=== PATIENT | male | born 1960 | race Caucasian/White ===

== ENCOUNTER 2017-03-09 11:36 | Emergency (ER) | payer MEDICARE, MEDICAID ==
[~2017-03-09] VITALS: Ht 162.6 cm; Wt 79.5 kg
[2017-03-09 11:42] VITALS: BP 138/66; PULSE 70; RESP 16; TEMP 97.4; O2SAT 98
[2017-03-09] MEDS ORDERED: TRAM1CAP21 PO ×2 (11:54→13:14)
[2017-03-09] MEDS ORDERED: PANT40TA3 PO ×2 (11:54→13:14)
[2017-03-09] MEDS ORDERED: AMLO5TAB2 PO ×2 (11:54→13:14)
[2017-03-09] MEDS ORDERED: NOVOLOGP2 SQ ×2 (11:54→13:14)
[2017-03-09] MEDS ORDERED: GABA800T PO ×2 (11:54→13:14)
[2017-03-09] MEDS ORDERED: ATOR1TAB18 PO ×2 (11:54→13:14)
[2017-03-09] MEDS ORDERED: OXYC1CAP PO ×2 (11:54→13:14)
[2017-03-09] MEDS ORDERED: PRED10 PO ×2 (11:54→13:14)
--- NOTE | 2017-03-09 13:16 | PD ---
HPI Chief Complaint: Medication Refill Request Time Seen by Provider: 13:00 Travel History International Travel<30 days: No Contact w/Intl Traveler<30days: No Traveled to known affect area: No History of Present Illness HPI The patient is a 56-year-old male who presents to the emergency department for medication refill. The patient states he is currently in [place] trying to sell his house, is from [place]. The patient has been down here over an extended time period and expects he may be in the area for another 2-4 weeks and an attempt to sell his house. The patient has ran out of most of his medication secondary to being down here for an extended time period. 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 He is requesting a refill for his medications. He does take NovoLog sliding scale which she needs a refill for, states he has his long-acting insulin. He is requesting a refill for the rest of his medications. Symptoms are none, exacerbated by recent travel from his home state of [place], and there are no current alleviating factors. PFSH Past Medical History Hx Anticoagulant Therapy: No Cardiovascular Problems: Yes (HTN) Diabetes: Yes Past Surgical History Narrative Surgical left above-knee amputation Social History Tobacco Use: No Allergies-Medications (Allergen,Severity, Reaction): Coded Allergies: No Known Allergies (Verified Allergy, Unknown, 03/09/17) Reported Meds & Prescriptions Reported Meds & Active Scripts Active Reported Prednisone 10 Mg Tab 10 Mg PO DAILY Pantoprazole (Pantoprazole Sodium) 40 Mg Tab 40 Mg PO DAILY Amlodipine (Amlodipine Besylate) 5 Mg Tab 5 Mg PO DAILY Oxycodone (Oxycodone HCl) 5 Mg Cap 5 Mg PO Q4H PRN Atorvastatin (Atorvastatin Calcium) 80 Mg Tab 80 Mg PO HS Tramadol ER 24 HR (Tramadol HCl) 100 Mg Caper 50 Mg PO DAILY Gabapentin 800 Mg Tab 800 Mg PO QID Novolog Inj (Insulin Aspart) 1,000 Unit/10 Ml Vial 0 SQ DIRECTED Sliding Scale as directed. Review of Systems Except as stated in HPI: all other systems reviewed are Neg Cardiovascular: No: Chest Pain or Discomfort Respiratory: No: Shortness of Breath Gastrointestinal: No: Nausea, Vomiting Musculoskeletal: Positive: Pain Physical Exam Narrative GENERAL: Awake, alert, pleasant 56-year-old male who appears his stated age and is in no acute respiratory distress. SKIN: Focused skin assessment warm/dry. HEAD: Atraumatic. Normocephalic. CARDIOVASCULAR: Regular rate and rhythm. No murmur appreciated. RESPIRATORY: No accessory muscle use. Clear to auscultation. Breath sounds equal bilaterally. GASTROINTESTINAL: Abdomen soft, non-tender, nondistended. MUSCULOSKELETAL: Left above-knee amputation. NEUROLOGICAL: Awake and alert. No obvious cranial nerve deficits. Motor grossly within normal limits. Normal speech. PSYCHIATRIC: Appropriate mood and affect; insight and judgment normal. Data Data Last Documented VS Vital Signs Date Time Temp Pulse Resp B/P (MAP) Pulse Ox O2 Delivery O2 Flow Rate FiO2 03/09/17 11:42 97.4 70 16 138/66 (90) 98 MDM Medical Decision Making Medical Screen Exam Complete: Yes Emergency Medical Condition: Yes Medical Record Reviewed: Yes Differential Diagnosis Differential diagnosis includes medication refill, diabetes, hypertension, hyperlipidemia, phantom pain, neuropathy. Narrative Course I do discussion with the patient regarding the need to follow-up with his primary physician for continuing prescriptions, I will refill most of his medications for 30 days and his controlled substances for 3-4 days, but advised him he will need to follow-up with his primary physician for refills of those medications. He is stable for outpatient follow-up. Diagnosis Primary Impression: Medication refill Patient Instructions: General Instructions Additional Instructions: follow-up with your primary physician for continuing refills of your medications including your tramadol and hydrocodone. Med/Other Pt SpecificInfo: Prescription(s) given Scripts Prednisone (Prednisone) 10 Mg Tab 10 MG PO DAILY, #30 TAB 0 Refills Prov: Gilberto Sosa MD 03/09/17 Pantoprazole (Pantoprazole) 40 Mg Tab 40 MG PO DAILY for Reflux, #30 TAB 0 Refills Prov: Gilberto Sosa MD 03/09/17 Amlodipine (Amlodipine) 5 Mg Tab 5 MG PO DAILY for Blood Pressure Management, #30 TAB 0 Refills Prov: Gilberto Sosa MD 03/09/17 Oxycodone (Oxycodone) 5 Mg Cap 5 MG PO Q4H Y for PAIN, #15 CAP 0 Refills Prov: Gilberto Sosa MD 03/09/17 Atorvastatin (Atorvastatin) 80 Mg Tab 80 MG PO HS for Cholesterol Management, #30 TAB 0 Refills Prov: Gilberto Sosa MD 03/09/17 Tramadol ER 24 HR (Tramadol ER 24 HR) 100 Mg Caper 50 MG PO DAILY for Pain Management, #30 CAP 0 Refills Prov: Gilberto Sosa MD 03/09/17 Gabapentin (Gabapentin) 800 Mg Tab 800 MG PO QID, #90 TAB 0 Refills Prov: Gilberto Sosa MD 03/09/17 Insulin Aspart Inj (Novolog Inj) 1,000 Unit/10 Ml Vial 0 SQ DIRECTED for Blood Sugar Management, #10 ML 0 Refills Sliding Scale as directed. Prov: Gilberto Sosa MD 03/09/17 Disposition: 01 DISCHARGE HOME Condition: Stable Gilberto Sosa MD Mar 09, 2017 13:16
== END 2017-03-09 13:35 | disposition home or self-care (01) ==
LOC: PHEFT 11:36
DX: E11.9 Type 2 diabetes mellitus without complications (principal); I10 Essential (primary) hypertension; Z79.4 Long term (current) use of insulin; Z76.0 Encounter for issue of repeat prescription
CPT/HCPCS: 99281

== ENCOUNTER 2017-06-03 12:47 | Emergency (ER) | payer MEDICAID, MEDICARE ==
[~2017-06-03] VITALS: Ht 162.6 cm; Wt 72.0 kg
[~2017-06-03 12:47] MED LIST: AMLO5TAB2 PO; ATOR80TA45 PO; GABA800T PO; NOVOLOGP2 SQ; OXYC1CAP PO; PANT40TA3 PO; PRED10 PO; TRAM1CAP21 PO
[2017-06-03 13:18] VITALS: BP 137/81; PULSE 79; RESP 18; TEMP 97.9; O2SAT 98
[2017-06-03] MEDS ORDERED: ACETAMINOPHEN/HYDROcodone 325 MG/5 MG TAB PO ONE (14:30)
--- NOTE | 2017-06-03 14:32 | PD ---
HPI Chief Complaint: Skin Problem Time Seen by Provider: 13:57 Travel History International Travel<30 days: No Contact w/Intl Traveler<30days: No Traveled to known affect area: No History of Present Illness HPI 56-year-old male with PMH of DM, MRSA, left AKA presents to the ED for evaluation of 3 day history of blister on the dorsal aspect of the right great toe. Patient states that the area is painful. Rated 8 out of 10, somewhat alleviated by elevation. Exacerbated by weightbearing. He denies fever, chills , nausea, vomiting, numbness, tingling, weakness, limitations to range of motion of the extremity. He treated at home with some lotion with no improvement of symptoms. Patient states that he is visiting from out of state. PFSH Past Medical History Hx Anticoagulant Therapy: No Cardiovascular Problems: Yes Diabetes: Yes Patient Takes Glucophage: No Social History Alcohol Use: No Tobacco Use: No Substance Use: No Allergies-Medications (Allergen,Severity, Reaction): Coded Allergies: No Known Allergies (Verified Allergy, Unknown, 03/09/17) Reported Meds & Prescriptions Reported Meds & Active Scripts Active Keflex (Cephalexin) 500 Mg Cap 500 Mg PO Q6H 7 Days Bactrim DS (Sulfamethoxazole-Trimethoprim) 800-160 Mg Tab 1 Tab PO BID Tramadol (Tramadol HCl) 50 Mg Tab 50 Mg PO Q6H PRN Prednisone 10 Mg Tab 10 Mg PO DAILY Pantoprazole (Pantoprazole Sodium) 40 Mg Tab 40 Mg PO DAILY Amlodipine (Amlodipine Besylate) 5 Mg Tab 5 Mg PO DAILY Oxycodone (Oxycodone HCl) 5 Mg Cap 5 Mg PO Q4H PRN Atorvastatin (Atorvastatin Calcium) 80 Mg Tab 80 Mg PO HS Tramadol ER 24 HR (Tramadol HCl) 100 Mg Caper 50 Mg PO DAILY Gabapentin 800 Mg Tab 800 Mg PO QID Novolog Inj (Insulin Aspart) 1,000 Unit/10 Ml Vial 0 SQ DIRECTED Sliding Scale as directed. Review of Systems Except as stated in HPI: all other systems reviewed are Neg Physical Exam Narrative GENERAL: Chronically ill-appearing white male in no acute distress. SKIN: Focused skin assessment warm/dry. There is a 2 cm long x 1 cm wide x 1 millimeter deep ulcer on the dorsal aspect of the right great toe. Local erythema without cellulitic changes. There is some edema on the dorsum of the foot but the patient states this is chronic and unchanged. HEAD: Normocephalic. EYES: No scleral icterus. No injection or drainage. NECK: Supple, trachea midline. No JVD or lymphadenopathy. CARDIOVASCULAR: Regular rate and rhythm without murmurs, gallops, or rubs. RESPIRATORY: Breath sounds equal bilaterally. No accessory muscle use. GASTROINTESTINAL: Abdomen soft, non-tender, nondistended. MUSCULOSKELETAL: No cyanosis, or edema. FOCUSED RIGHT LOWER EXTREMITY EXAM: 2+ DP pulse. Patient is able to wiggle the toes, flex the ankle. Sensation intact to light touch distally. Cap refill less than 2 seconds. BACK: Nontender without obvious deformity. No CVA tenderness. Data Data Last Documented VS Vital Signs Date Time Temp Pulse Resp B/P (MAP) Pulse Ox O2 Delivery O2 Flow Rate FiO2 06/03/17 13:18 97.9 79 18 137/81 (99) 98 Orders Orders Foot, Complete ([id number]) (06/03/17 14:00) Acetamin-Hydrocod 325-5 Mg ([place] 5-325 (06/03/17 14:30) Wound Culture And Gram Stain (06/03/17 15:52) MDM Medical Decision Making Medical Screen Exam Complete: Yes Emergency Medical Condition: Yes Differential Diagnosis Cellulitis versus diabetic foot wound versus osteomyelitis versus other Narrative Course 56-year-old male with PMH of DM, MRSA, left AKA presents to the ED for evaluation of 3 day history of blister on the dorsal aspect of the right great toe. He denies fever, chills, nausea, vomiting, numbness, tingling, weakness, limitations to range of motion of the extremity. [place]. Patient afebrile on presentation. Physical exam reveals a 2 cm long by 1 cm wide by 1 mm deep ulceration on the dorsal aspect of the great toe. There is cranial eyes tissue under a thin layer of eschar. There is localized erythema but no cellulitic streaking, warmth, edema. Area is tender to palpation. Patient retains full, active ROM of the toe. Patient was blistered 5 mg Lortab. Cultures were obtained. X-ray Reveals erosion or absence of the lateral aspect of the distal portion of the first proximal phalanx. This is nonspecific and could be due to degenerative change or be chronic. Osteomyelitis is felt to be less likely given the appearance but is difficult to exclude. Findings per radiology read. We'll trial a course of outpatient antibiotics. Patient is prescribed Bactrim and Keflex and a short course of pain medications. He is instructed to keep the wound clean, dry and covered, take the antibiotics as prescribed, return to the ED in 48 hours for wound recheck, sooner if symptoms worsen. He indicated understanding of instructions and is agreeable to the care plan. The patient is stable and discharged home. Diagnosis Primary Impression: Cellulitis of right foot Referrals: Primary Care Physician Patient Instructions: Diabetic Foot Ulcers (ED), General Instructions Additional Instructions: Rest, elevate her foot. Keep the wound clean, covered and dry. Begin antibiotics today and take the pills until they are all gone. Follow-up with the manager pet. Return to the ED in 48 hours for wound evaluation, sooner if symptoms worsen. Med/Other Pt SpecificInfo: Prescription(s) given Scripts Cephalexin (Keflex) 500 Mg Cap 500 MG PO Q6H for Infection for 7 Days, #28 CAP 0 Refills Prov: Rosendo Hollis MD 06/03/17 Sulfamethoxazole-Trimethoprim (Bactrim DS) 800-160 Mg Tab 1 TAB PO BID for Infection, #14 TAB 0 Refills Prov: Rosendo Hollis MD 06/03/17 Tramadol (Tramadol) 50 Mg Tab 50 MG PO Q6H Y for PAIN, #12 TAB 0 Refills Prov: Rosendo Hollis MD 06/03/17 Disposition: 01 DISCHARGE HOME Condition: Stable Tara Abbott Jun 03, 2017 14:32
--- NOTE | 2017-06-03 15:36 | RADRPT ---
EXAM DATE/TIME: 06/03/2017 14:38 [facility] COMPARISON: No previous studies available for comparison. INDICATIONS : Infection right big toe for 1 week, swelling into foot MEDICAL HISTORY : Diabetes mellitus type II. SURGICAL HISTORY : Right foot ENCOUNTER: Initial ACUITY: 1 week PAIN SCORE: 7/10 LOCATION: Right foot FINDINGS: AP, lateral and oblique views of the right foot were obtained and demonstrate diffuse osteopenia. The re is focal soft tissue swelling over the dorsum of the midfoot best seen on the lateral exam with no radiopaque foreign body. There are degenerative changes involving the interphalangeal joints with robby int space narrowing and mild sclerosis. There is no definite destructive change. There is a apparent erosion or absence of the lateral aspect of the distal portion of the first proximal phalanx. There i s mild soft tissue swelling over the first digit as well. CONCLUSION: 1. Apparent erosion or absence of the lateral aspect of the distal portion of the first proximal phal anx. This is nonspecific and could be due to degenerative change or be chronic. Osteomyelitis is felt to be less likely given the appearance but is difficult to exclude. 2. Extensive soft tissue swelling over the dorsum of foot no other focal abnormalities. 3. Linden Palma MD on June 03, 2017 at 15:30 Board Certified Radiologist. This report was verified electronically.
[2017-06-03] MEDS ORDERED: BACT800T5 PO (15:57)
[2017-06-03] MEDS ORDERED: CEPH-460 PO (15:57)
[2017-06-03] MEDS ORDERED: TRAM50TA PO (15:57)
== END 2017-06-03 16:24 | disposition home or self-care (01) ==
LOC: PHEFT 12:47
DX: L03.115 Cellulitis of right lower limb (principal); E11.9 Type 2 diabetes mellitus without complications; Z79.4 Long term (current) use of insulin
CPT/HCPCS: 73630; 87070; 87077; 87186; 87205; 99284

== ENCOUNTER 2017-06-08 11:45 | Emergency (ER) | payer MEDICARE ==
[~2017-06-08] VITALS: Ht 162.6 cm; Wt 70.0 kg
[~2017-06-08 11:45] MED LIST changes: +BACT800T5 PO; +CEPH-460 PO; +TRAM50TA PO
[2017-06-08 12:16] VITALS: BP 120/73; PULSE 72; RESP 16; TEMP 98.5; O2SAT 98
--- NOTE | 2017-06-08 12:49 | PD ---
HPI Chief Complaint: Wound/Suture/Staple Re-Check Time Seen by Provider: 12:36 Travel History International Travel<30 days: No Contact w/Intl Traveler<30days: No Traveled to known affect area: No History of Present Illness HPI 56-year-old male with reported history of diabetes, hypertension, peripheral vascular disease, left leg amputation, presents for wound recheck. He developed a blister on his dorsal right great toe 1 week ago which popped. He was seen here on June 03 and diagnosed with cellulitis of the right foot. Wound culture was performed. He was discharged with Bactrim and Keflex. He was instructed to return in 48 hours for recheck. He reports slight improvement in his symptoms. He has been taking his antibiotics as prescribed. He denies any fevers or chills. He has no other complaints at this time. PFSH Past Medical History Hx Anticoagulant Therapy: No Cardiovascular Problems: Yes Diabetes: Yes Patient Takes Glucophage: No Tetanus Vaccination: Unknown Social History Alcohol Use: No Tobacco Use: No Substance Use: No Allergies-Medications (Allergen,Severity, Reaction): Coded Allergies: No Known Allergies (Verified , 06/08/17) Reported Meds & Prescriptions Reported Meds & Active Scripts Active Keflex (Cephalexin) 500 Mg Cap 500 Mg PO Q6H 7 Days Bactrim DS (Sulfamethoxazole-Trimethoprim) 800-160 Mg Tab 1 Tab PO BID Tramadol (Tramadol HCl) 50 Mg Tab 50 Mg PO Q6H PRN Prednisone 10 Mg Tab 10 Mg PO DAILY Pantoprazole (Pantoprazole Sodium) 40 Mg Tab 40 Mg PO DAILY Amlodipine (Amlodipine Besylate) 5 Mg Tab 5 Mg PO DAILY Oxycodone (Oxycodone HCl) 5 Mg Cap 5 Mg PO Q4H PRN Atorvastatin (Atorvastatin Calcium) 80 Mg Tab 80 Mg PO HS Tramadol ER 24 HR (Tramadol HCl) 100 Mg Caper 50 Mg PO DAILY Gabapentin 800 Mg Tab 800 Mg PO QID Novolog Inj (Insulin Aspart) 1,000 Unit/10 Ml Vial 0 SQ DIRECTED Sliding Scale as directed. Review of Systems Except as stated in HPI: all other systems reviewed are Neg Physical Exam Narrative GENERAL: Well-developed well-nourished male in no acute distress SKIN: Warm and dry. Examination of the right leg reveals a 1.5 cm superficial laceration with well demarcated edges on the dorsum of the right great toe. Previous skin grafting noted to the dorsum of the right foot. There is red and hypertrophic skin noted to the right pretibial region which the patient reports is chronic. HEAD: Atraumatic. Normocephalic. EYES: Pupils equal and round. No scleral icterus. No injection or drainage. ENT: No nasal bleeding or discharge. Mucous membranes pink and moist. NECK: Trachea midline. No JVD. CARDIOVASCULAR: Regular rate and rhythm. No murmur appreciated. RESPIRATORY: No accessory muscle use. Clear to auscultation. Breath sounds equal bilaterally. GASTROINTESTINAL: Abdomen soft, non-tender, nondistended. Hepatic and splenic margins not palpable. MUSCULOSKELETAL: Skin as noted above. Left leg amputation noted. Faintly palpable right dorsalis pedis pulse. NEUROLOGICAL: Awake and alert. No obvious cranial nerve deficits. Motor grossly within normal limits. Normal speech. Data Data Last Documented VS Vital Signs Date Time Temp Pulse Resp B/P (MAP) Pulse Ox O2 Delivery O2 Flow Rate FiO2 06/08/17 12:16 98.5 72 16 120/73 (89) 98 Orders Orders Ed Discharge Order (06/08/17 12:44) [facility] Medical Decision Making Medical Screen Exam Complete: Yes Emergency Medical Condition: Yes Medical Record Reviewed: Yes Differential Diagnosis Wound recheck, diabetic foot ulcer, cellulitis, osteomyelitis Narrative Course Examination is consistent with diabetic ulcer on the dorsum of the right foot. There is no significant cellulitic changes. Wound culture performed on June 03 reveals Serratia Marcescens sensitive to Bactrim. He is encouraged to continue taking antibiotics. The patient is a high risk for osteomyelitis given his history of peripheral vascular disease, diabetes, previous left leg amputation. Therefore he will be referred to wound care clinic for follow-up. Discussed signs and symptoms don't warrant return to the emergency room. He is stable for discharge. Diagnosis Primary Impression: Diabetic foot ulcer Referrals: Wilian Pickett DPM Additional Instructions: Continue taking the antibiotics as prescribed. Follow-up with Dr. Pickett in 3-4 days. Return for any acutely new or worsening symptoms. Med/Other Pt SpecificInfo: No Change to Meds Disposition: 01 DISCHARGE HOME Condition: Stable Meet Gallo Jun 08, 2017 12:49
[2017-06-08] MEDS ORDERED: traMADol HCL 50 MG TAB PO ONE (14:00)
== END 2017-06-08 14:07 | disposition home or self-care (01) ==
LOC: PHED 11:45 → PHEFT 14:07
DX: Z48.00 Encounter for change or removal of nonsurgical wound dressing (principal); E11.621 Type 2 diabetes mellitus with foot ulcer
CPT/HCPCS: 99281